=== PATIENT | male | born 1940 | race Hispanic/Latino ===

== ENCOUNTER → 2018-11-07 | Outpatient (CLI) | payer OTHER | END | disposition home or self-care (01) | LOC: RAH 12:55 | PROVIDERS: ATTEND Internal Medicine Cardiovascular Disease | DX: Z13.6 Encounter for screening for cardiovascular disorders (principal) | CPT/HCPCS: 75571 ==

== ENCOUNTER → 2024-07-16 | Outpatient (CLI) | payer MEDICARE ==
[~2024-07-16] MED LIST: IOHEXOL 350 MG/ML 100ML INFUS..BTL IV ONE; MIDAZOLAM HCL 1 MG/ML 2ML VIAL ONE; dexmedeTOMIDine HCL 200 MCG/2 ML VIAL IV ONE; ketaMINE 50MG/ML SYRINGE 50 MG/ML DISP.SYRIN ONE; metoPROLOL tartRATE 1 MG/ML 5ML VIAL IV ONE; proPOFol 1000 MG/100 ML 100 ML IV ONE; rocuRONium bROMide 10MG/1ML 5ML VL ONE
--- NOTE | 2024-07-16 09:57 | HMCIMG ---
CT CARDIAC ANGIO W/CONT. CCTA REASON: Abnormal findings on diagnostic imaging of heart and coronary circulation COMPARISON: None TECHNIQUE: Images are obtained through the heart in the axial plane before and during bolus IV contrast infusion, 100 cc Omnipaque 350. 2-D and 3-D multiplanar reconstruction images were then performed. The injection had to be repeated once due to motion artifact on the first sequence, total contrast volume was 200 cc. FINDINGS: This dictation is for the noncardiac findings only. Cardiac and coronary artery findings are reported separately. Visualized portions of the lungs are clear. There is normal-appearing pulmonary interstitium. There is no hilar or mediastinal lymphadenopathy. Chest wall structures appear unremarkable. IMPRESSION: 1. Unremarkable noncardiac portions of CT cardiac angiography.
== END | disposition home or self-care (01) ==
LOC: RAH 08:05
PROVIDERS: ATTEND Internal Medicine Cardiovascular Disease
DX: R93.1 Abnormal findings on diagnostic imaging of heart and coronary circulation (principal)
CPT/HCPCS: 75574; J3490 ×4; J2250; J2704; Q9967

== ENCOUNTER 2024-08-16 05:55 | Day surgery (SDC) | payer MEDICARE ==
[2024-08-14 11:09] LABS: CREATININE 1.1 mg/dL (0.5-1.3); POTASSIUM 3.9 mmol/L (3.5-5.1)
[2024-08-14 11:12] LABS: INR 1.03 (0.85-1.15); PROTHROMBIN TIME 10.9 SEC (9.6-11.6)
[2024-08-14 11:13] LABS: PARTIAL THROMBOPLASTIN TIME 30.3 SEC (26.3-35.5)
[2024-08-14 11:16] LABS: BASOPHILS # (AUTO) 0.05 K/uL (0.00-0.20); BASOPHILS % (AUTO) 0.6 % (0.0-5.0); EOSINOPHILS # (AUTO) 0.19 K/uL (0.00-0.70); EOSINOPHILS % (AUTO) 2.1 % (0.0-8.0); HEMATOCRIT 44.8 % (42-54); IMMATURE GRANULOCYTE ABSOLUTE 0.05 K/uL (0-1); LYMPHOCYTES # (AUTO) 2.1 K/uL (1.0-4.8); LYMPHOCYTES % (AUTO) 23.2 % (21.0-51.0); MEAN CORPUSCULAR HGB CONC 33.7 g/dL (32.0-36.0); MEAN CORPUSCULAR VOLUME 86.2 fL (79-99); MONOCYTES # (AUTO) 0.8 K/uL (0.1-1.0); MONOCYTES % (AUTO) 8.8 % (3.0-13.0); NEUTROPHILS # (AUTO) 5.8 K/uL (1.8-7.7); NEUTROPHILS % (AUTO) 64.7 % (40.0-77.0); PLATELET COUNT (AUTO) 213 K/uL (130-400); RED CELL DISTRIBUTION WIDTH 13.4 % (11.0-15.5)
[2024-08-14 11:26] LABS: B-TYPE NATRIURETIC PEPTIDE 12 pg/mL (0-100)
[2024-08-14 11:42] VITALS: BP 157/66; PULSE 80; RESP 15; TEMP 98.2
--- NOTE | 2024-08-14 12:41 | HMCIMG ---
CHEST 1VW HISTORY: Preop COMPARISON: None FINDINGS: A frontal projection of the chest was obtained. No acute pulmonary infiltrates is seen. The heart is borderline enlarged. Prominent interstitial markings are seen. Degenerative changes are seen. No evidence of aortic calcification is seen. IMPRESSION: 1. No acute pulmonary infiltrate is seen.
--- NOTE | 2024-08-14 13:05 | EKG ---
[facility] Test Date: 2024-08-14 Test Time: 11:43:38 Pat Name: CINDY RANGEL Department: [facility] Room: Gender: M [employer] Manager: [id number] : 1940 Requested By: ROCÍO SHEPPARD Order Number: [id number] Reading MD: Rocío Marie Measurements Intervals Independence Rate: 75 P: 44 ND: 157 QRS: -74 QRSD: 89 T: 26 QT: 367 QTc: 409 Interpretive Statements Sinus rhythm Possible Inferior infarct, old No previous ECG available for comparison Electronically Signed On 08-14-2024 18:28:25 RV REPAIR TECHNICIAN by Rocío Marie Please click the below link to view image of tracing.
[~2024-08-16] VITALS: Ht 172.7 cm; Wt 94.5 kg
[2024-08-16] VITALS (11 sets, daily range): BP systolic 110–150; BP diastolic 51–80; PULSE 64–88; RESP 12–16; TEMP 97.3–98.2
[~2024-08-16 05:55] MED LIST changes: +ALLEGRA PO; +AMLO-258 PO; +ASPI-1443 PO; +ATOR40TA71 PO; +CARV6.25 PO; +CILO50TA2 PO; +HYDR25TA PO; -IOHEXOL 350 MG/ML 100ML INFUS..BTL IV ONE; +IRBE300T26 PO; +MEMA5TAB16 PO; -MIDAZOLAM HCL 1 MG/ML 2ML VIAL ONE; +MVI PO; +OMEP20TA2 PO; +TAMS-1 PO; +VIT D PO; -dexmedeTOMIDine HCL 200 MCG/2 ML VIAL IV ONE; -ketaMINE 50MG/ML SYRINGE 50 MG/ML DISP.SYRIN ONE; -metoPROLOL tartRATE 1 MG/ML 5ML VIAL IV ONE; -proPOFol 1000 MG/100 ML 100 ML IV ONE; -rocuRONium bROMide 10MG/1ML 5ML VL ONE
[2024-08-16] MEDS: 0.9%NACL 1000ML 1,000 ML IV SCH (06:42)
[2024-08-16] MEDS ORDERED: IOHEXOL 350 MG/ML 100ML INFUS..BTL IV ONE (07:20)
[2024-08-16] MEDS ORDERED: HEParin 10,000 UNIT/10ML (1,000 UNIT/ML) VIAL ONE (07:20)
[2024-08-16] MEDS ORDERED: HEParin-NS 1,000 UNIT/500 ML 1,000 ML IV ONE (07:20)
[2024-08-16] MEDS ORDERED: LIDOCAINE HCL 400MG/20ML VIAL ONE (07:20)
[2024-08-16] MEDS ORDERED: NITROGLYCERIN 50MG VIAL ONE (07:21)
[2024-08-16] MEDS ORDERED: FENTanyl CITRate PF 50 MCG/1 ML 2ML VIAL ONE (07:32)
[2024-08-16] MEDS ORDERED: MIDAZOLAM HCL 1 MG/ML 2ML VIAL ONE (07:32)
[2024-08-16] MEDS ORDERED: IOHEXOL-350 50ML VIAL IV ONE (08:22)
[2024-08-16] MEDS ORDERED: 0.9%NACL 1000ML 1,000 ML IV SCH (09:00)
[2024-08-16] MEDS ORDERED: GLUCAGON 1MG KIT 1 MG ML IM PRN (09:00)
[2024-08-16] MEDS ORDERED: DEXTROSE 50%-WATER 50 ML DISP.SYRIN IV PRN (09:00)
--- NOTE | 2024-08-16 09:07 | PRN ---
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 Following sterile prep and drape, a time out was performed, then moderate sedation was administered, 1mg of Versed and 50mcg of Fentanyl, then 1% Lidocaine was infiltrated into the right femoral groin. Using a Modified Seldinger technique, a 6Fr Sheath was inserted into the right common femoral artery. While under fluoroscopic guidance, diagnostic coronary catheters were advanced over a wire into the central circulation where they were aspirated, flushed and placed to pressure monitoring, once the wire was removed. Coronary Angio: The left and right coronary arteries were engaged with appropriate catheters and angiography was performed under continuous pressure monitoring. Left Heart Catheterization: A JR4 catheter was inserted into the LV and the pressure was recorded, then the catheter was removed from the LV. Cardiac Findings: Right dominant system LM: Large caliber vessel with 70% stenosis in the distal left main. The vessel bifurcates into the LAD and LCX. LAD: Medium caliber vessel with 70% stenosis in the proximal LAD and diffuse 80% stenosis in the mid LAD. ABENA 3 blood flow distally. Diagonal 1: Small caliber vessel (1.5mm) with 90% stenosis ostial diagonal Diagonal 2: Medium caliber vessel with mild luminal irregularities LCx: Medium caliber vessel with 50% stenosis in the ostial LCX and 80% stenosis in the mid LCX. OM1: Medium caliber vessel with 70% stenosis in the mid segment of the vessel OM2: Medium caliber vessel with 95% stenosis in the mid segment of the vessel RCA: Medium caliber vessel with 80% stenosis in the ostial RCA, diffuse 80% stenosis of the mid RCA and 70% stenosis in the distal RCA RPDA: Small caliber vessel with 70% stenosis in the ostial RPDA RPLV: Small caliber vessel with mild luminal irregularities LVEDP: 8mmHg Medications given: Versed 1mg, Fentanyl 50mcg Coronary Intervention: None Complications: None Conscious Sedation Monitoring: Under my direct order and supervision, medication for moderate conscious sedation was administered by the nursing staff and the patients level of consciousness and physiological status was monitored by an independent trained nurse. Closure of Access Site: After the case completed the sheath was pulled and a 6Fr Angioseal was deployed in the right common femoral artery without complication. Conclusion: 1. 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 SUN (anginal equivalent) 3. Abnormal coronary CTA done on 07/21/2024 4. HTN 5. HLP 6. Normal left ventricle systolic function Recommendation: 1. Continue goal-directed medical therapy 2. Consult CT surgery for CABG evaluation (to be done as an outpatient) 3. Groin precautions 4. 4 hours of bedrest 5. Start NS at 100 mL/hour x3 hours. 6. Okay to DC once bed restless complete in the right groin is soft, and free of bruising, bleeding, and or hematoma formation. 7. No driving for the next 48 hours. 8. No heavy lifting or strenuous exercise for the next two weeks. ROCÍO SHEPPARD MD Aug 16, 2024 09:07
--- NOTE | 2024-08-16 11:38 | NUR ---
pt and pt family requesting to see cardiology at [facility]. Dr Centeno spoke with pt and pt family about pt condition and situation and they are still adamant about seeing cardiology at [facility]. Dr Centeno aware.
== END 2024-08-16 12:40 | disposition home or self-care (01) ==
LOC: DAH 05:55
PROVIDERS: ATTEND Internal Medicine Cardiovascular Disease
DX: R93.1 Abnormal findings on diagnostic imaging of heart and coronary circulation (principal); I25.10 Atherosclerotic heart disease of native coronary artery without angina pectoris; R06.09 Other forms of dyspnea; I10 Essential (primary) hypertension; E78.5 Hyperlipidemia, unspecified; M19.071 Primary osteoarthritis, right ankle and foot; N40.0 Benign prostatic hyperplasia without lower urinary tract symptoms; I35.9 Nonrheumatic aortic valve disorder, unspecified; Z79.82 Long term (current) use of aspirin; Z79.01 Long term (current) use of anticoagulants; Z82.49 Family history of ischemic heart disease and other diseases of the circulatory system; Z79.899 Other long term (current) drug therapy; Z98.890 Other specified postprocedural states
CPT/HCPCS: 80048; 83880; 85025; 85610; 85730; 36415; 71045; 93005; 93458; 82948; C1894 ×2; C1760; J3010; J3490 ×2; J7030; J2250; J1644; Q9967 ×2; A4215; A4222; A4221; A4663; A4216; A4606; Q9965; A4223 ×3; 96360; 96361; 99156; 99157